=== PATIENT | male | born 1990 | race Caucasian/White ===

== ENCOUNTER 2020-10-04 21:08 | Emergency (ER) | payer SELFPAY ==
--- OUTSIDE RECORDS SUMMARY | 2020-10-04 21:11 | XMS REPORT | Continuity of Care Document ---
:1990 Author Organization [facility] t Address [address] [place] [address] Care Team Providers Name Role Phone Ismael LEGGETT Attending Clinician Problems This patient has no known problems. Allergies, Adverse Reactions, Alerts This patient has no known allergies or adverse reactions. Medications This patient has no known medications. Procedures This patient has no known procedures. Encounters Start End Encounter Admission Attending Care Care Encounter Source Date/Time Date/Time Type Type Clinicians Facility Department ID 2019-12-14 2019-12-14 Telemedici Dandre Guevara [facility] [id number] 08:36:00 08:51:00 ne Visit SPECIALTY [id number] CARE [id number] [place] AT [id number] ADELA WOLFF 2019-11-04 2019-11-13 Office Dandre Guevara [facility] [id number] 14:11:23 11:19:33 Visit SPECIALTY [id number] CARE [id number] [place] AT [id number] ADELA [address] [place] [address] Results This patient has no known results.
--- NOTE | 2020-10-05 00:40 | ER ---
Nurse's Notes [facility] Name: Silvano Baker III Age: 29 yrs Sex: Male : 1990 Arrival Date: 10/04/2020 Time: 21:08 Bed 8 Private MD: Diagnosis: Strain of Achilles tendon;Pain in left lower leg Presentation: 10/04 21:55 Chief complaint: Patient states: he states he is having what feels like a cramp in his bb left calf x 2 weeks it is painful and swells. Coronavirus screen: At this time, the client does not indicate any symptoms associated with coronavirus-19. Ebola Screen: No symptoms or risks identified at this time. Initial Sepsis Screen: Does the patient meet any 2 criteria? No. Patient's initial sepsis screen is negative. Does the patient have a suspected source of infection? No. Patient's initial sepsis screen is negative. Risk Assessment: Do you want to hurt yourself or someone else? Patient reports no desire to harm self or others. Onset of symptoms was September 2020. 21:55 Method Of Arrival: Ambulatory 21:55 Acuity: SANDRA 3 bb Triage Assessment: 21:58 General: Appears in no apparent distress. uncomfortable, Behavior is calm, cooperative. bb Pain: Complains of pain in left calf Pain currently is 8 out of 10 on a pain scale. Quality of pain is described as crampy, Pain began 2 weeks ago. Neuro: Level of Consciousness is awake, alert, obeys commands, Oriented to person, place, time, situation. Respiratory: Airway is patent Respiratory effort is even, unlabored, Respiratory pattern is regular. Derm: Skin is pink, warm \T\ dry. Musculoskeletal: Circulation, motion, and sensation intact. Reports pain in left calf. Historical: - Allergies: 21:58 No Known Allergies; bb - Home Meds: 21:58 None [Active]; bb - PMHx: 21:58 None; bb - PSHx: 21:58 jaw surgery; right tib fib; bb - Immunization history:: Adult Immunizations up to date. - Social history:: Smoking status: Patient reports the use of cigarette tobacco products, smokes one pack cigarettes per day. Patient uses alcohol. - Family history:: not pertinent. Screenin/21 01:35 Abuse screen: Denies threats or abuse. Denies injuries from another. Nutritional mg2 screening: No deficits noted. Tuberculosis screening: No symptoms or risk factors identified. Fall Risk None identified. Assessment: 00:38 Reassessment: pt called from [facility] multiple times no answer and unable to locate. bb 01:28 Reassessment: [facility]. Pt is A\T\O x 4, resp bb unlabored. 01:35 Reassessment: patient came back to ed. seen by the provider and utlrtrasound report mg2 explained by him to the patient. Vital Signs: 10/04 21:55 BP 104 / 87; Pulse 113; Resp 16 S; Temp 97.9(O); Pulse Ox 96% on R/A; Weight 104.33 kg; bb Height 6 ft. 1 in. (185.42 cm); Pain 8/10; 10/05 01:29 BP 116 / 75; Pulse 98; Resp 16; Temp 98.1(O); Pulse Ox 100% on R/A; Pain 6/10; bb 10/04 21:55 Body Mass Index 30.34 (104.33 kg, 185.42 cm) bb ED Course: 10/04 21:08 Patient arrived in ED. cl3 21:45 Patient's name was called from ER [facility]. No response. bb 21:56 [facility] Boat[facility]C [facility] kb 21:56 Kolby Garland MD is Attending Physician. kb 21:57 Triage completed. bb 21:58 Arm band placed on Patient placed in waiting room, Patient notified of wait time. bb ultrasound ordered. 22:39 US Extremity Venous Unilateral Ltd In Process Unspecified. EDMS 10/05 01:35 Jose Miguel Yates, RN is Primary Nurse. mg2 01:35 Kolby Garland MD is Attending Physician. marlyn 01:36 Patient has correct armband on for positive identification. mg2 01:36 No provider procedures requiring assistance completed. Patient did not have IV access mg2 during this emergency room visit. 01:45 Memo De Leon MD is Referral Physician. marlyn Administered Medications: 01:48 Drug: Motrin (ibuprofen) 800 mg Route: PO; mg2 01:58 Follow up: Response: No adverse reaction; Medication administered at discharge. jm8 Outcome: 00:39 Patient left the ED. bb 01:46 Discharge ordered by MD. cline 01:56 Discharged to home ambulatory. jm8 01:56 Condition: good 01:56 Discharge instructions given to patient. 01:59 Patient left the ED. jm8 Signatures: Dispatcher [employer] EDMS Jesusita Boateng, COMMODITY BROKER-C COMMODITY BROKER-Kolby Knowles MD MD cha Ballard, Brenda, RN Jose Miguel Dumas, Yeni Griffin RN 3 Jamal Rouse RN TRES jm8
--- NOTE | 2020-10-05 01:46 | EDPHYS ---
Physician Documentation [facility] Name: Silvano Baker III Age: 29 yrs Sex: Male : 1990 Arrival Date: 10/04/2020 Time: 21:08 Bed 8 Private MD: SHANE Physician Kolby Garland HPI: 10/05 01:39 This 29 yrs old Male presents to ER via Ambulatory with complaints of Leg marlyn Pain, Leg Swelling. 01:39 The patient presents with decreased range of motion, pain, swelling. The complaints marlyn affect the lateral aspect of left calf, left calf, medial aspect of left calf and left valente. Context: resulted from an unknown cause. Onset: The symptoms/episode began/occurred 7 day(s) ago. Modifying factors: The symptoms are alleviated by elevating leg, remaining still, the symptoms are aggravated by movement. Associated signs and symptoms: The patient has no apparent associated signs or symptoms. Treatment prior to arrival includes: no previous treatment. Severity of symptoms: At their worst the symptoms were moderate, in the emergency department the symptoms are unchanged. The patient has not experienced similar symptoms in the past. Historical: - Allergies: 10/04 21:58 No Known Allergies; bb - Home Meds: 21:58 None [Active]; bb - PMHx: 21:58 None; bb - PSHx: 21:58 jaw surgery; right tib fib; bb - Immunization history:: Adult Immunizations up to date. - Social history:: Smoking status: Patient reports the use of cigarette tobacco products, smokes one pack cigarettes per day. Patient uses alcohol. - Family history:: not pertinent. ROS: 10/05 01:39 Constitutional: Negative for fever, chills, and weight loss, Eyes: Negative for injury, marlyn pain, redness, and discharge, ENT: Negative for injury, pain, and discharge, Neck: Negative for injury, pain, and swelling, Cardiovascular: Negative for chest pain, palpitations, and edema, Respiratory: Negative for shortness of breath, cough, wheezing, and pleuritic chest pain, Abdomen/GI: Negative for abdominal pain, nausea, vomiting, diarrhea, and constipation, Back: Negative for injury and pain, : Negative for injury, bleeding, discharge, and swelling, Skin: Negative for injury, rash, and discoloration, Neuro: Negative for headache, weakness, numbness, tingling, and seizure, Psych: Negative for depression, anxiety, suicide ideation, homicidal ideation, and hallucinations, Allergy/Immunology: Negative for hives, rash, and allergies, Endocrine: Negative for neck swelling, polydipsia, polyuria, polyphagia, and marked weight changes. MS/extremity: Positive for decreased range of motion, pain, swelling, of the left calf. Exam: 01:39 Constitutional: This is a well developed, well nourished patient who is awake, alert, marlyn and in no acute distress. Head/Face: Normocephalic, atraumatic. Eyes: Pupils equal round and reactive to light, extra-ocular motions intact. Lids and lashes normal. Conjunctiva and sclera are non-icteric and not injected. Cornea within normal limits. Periorbital areas with no swelling, redness, or edema. ENT: Nares patent. No nasal discharge, no septal abnormalities noted. Tympanic membranes are normal and external auditory canals are clear. Oropharynx with no redness, swelling, or masses, exudates, or evidence of obstruction, uvula midline. Mucous membranes moist. Neck: Trachea midline, no thyromegaly or masses palpated, and no cervical lymphadenopathy. Supple, full range of motion without nuchal rigidity, or vertebral point tenderness. No Meningismus. Chest/axilla: Normal chest wall appearance and motion. Nontender with no deformity. No lesions are appreciated. Cardiovascular: Regular rate and rhythm with a normal S1 and S2. No gallops, murmurs, or rubs. Normal PMI, no JVD. No pulse deficits. Respiratory: Lungs have equal breath sounds bilaterally, clear to auscultation and percussion. No rales, rhonchi or wheezes noted. No increased work of breathing, no retractions or nasal flaring. Abdomen/GI: Soft, non-tender, with normal bowel sounds. No distension or tympany. No guarding or rebound. No evidence of tenderness throughout. Back: No spinal tenderness. No costovertebral tenderness. Full range of motion. Male : Normal genitalia with no discharge or lesions. Skin: Warm, dry with normal turgor. Normal color with no rashes, no lesions, and no evidence of cellulitis. Neuro: Awake and alert, GCS 15, oriented to person, place, time, and situation. Cranial nerves II-XII grossly intact. Motor strength 5/5 in all extremities. Sensory grossly intact. Cerebellar exam normal. Normal gait. Psych: Awake, alert, with orientation to person, place and time. Behavior, mood, and affect are within normal limits. 01:39 Musculoskeletal/extremity: ROM: limited passive range of motion, limited active range of motion due to pain, limited passive range of motion due to pain, in the lateral aspect of left calf, left calf, medial aspect of left calf and left valente. Vital Signs: 10/04 21:55 BP 104 / 87; Pulse 113; Resp 16 S; Temp 97.9(O); Pulse Ox 96% on R/A; Weight 104.33 kg; bb Height 6 ft. 1 in. (185.42 cm); Pain 8/10; 10/05 01:29 BP 116 / 75; Pulse 98; Resp 16; Temp 98.1(O); Pulse Ox 100% on R/A; Pain 6/10; bb 10/04 21:55 Body Mass Index 30.34 (104.33 kg, 185.42 cm) bb MDM: 01:35 Patient medically screened. [facility] 01:43 Differential diagnosis: contusion, abrasion, tendonitis. Data reviewed: vital signs, [facility] nurses notes. Data interpreted: quality assurance monitor body: rate is 98 beats/min, rhythm is regular, Pulse oximetry: on room air is 100 %. Test interpretation: by ED physician or midlevel provider:. Counseling: I had a detailed discussion with the patient and/or guardian regarding: the historical points, exam findings, and any diagnostic results supporting the discharge/admit diagnosis, radiology results. 10/04 21:57 Order name: US Extremity Venous Unilateral Ltd kb 10/05 01:48 Order name: Mat Wrap; Complete Time: 01:48 marlyn Administered Medications: 01:48 Drug: Motrin (ibuprofen) 800 mg Route: PO; mg2 01:58 Follow up: Response: No adverse reaction; Medication administered at discharge. jm8 Disposition: 10/05/20 01:46 Discharged to Home. Impression: Strain of Achilles tendon, Pain in left lower leg. - Condition is Stable. - Discharge Instructions: Musculoskeletal Pain, Cryotherapy, [id number], Cryotherapy. - Prescriptions for Diclofenac Sodium 75 mg Oral Tablet, Delayed Release (E.C.) - take 1 tablet by ORAL route 2 times per day; 20 tablet. - Medication Reconciliation Form, Thank You Letter, Antibiotic Education, Prescription Opioid Use form. - Follow up: Private Physician; When: 2 - 3 days; Reason: Recheck today's complaints, Continuance of care, Re-evaluation by your physician. Follow up: Memo De Leon MD; When: 2 - 3 days; Reason: Recheck today's complaints, Re-evaluation by your physician. - Problem is new. - Symptoms have improved. Signatures: Dispatcher [employer] EDMS Kolby Garland MD MD cha Ballard, Brenda RN RN Jose Miguel Becker, RN RN mg2 Jamal Rouse RN RN jm8 Corrections: (The following items were deleted from the chart) 00:39 00:38 10/05/2020 00:38 Patient left the facility before being seen by provider. Reason neymar stated they are leaving due to unknown. neymar 01:44 00:39 10/05/2020 00:38 Patient left the facility before being seen by provider. Reason marlyn stated they are leaving due to unknown. neymar 01:59 01:46 10/05/2020 01:46 Discharged to Home. Impression: Strain of Achilles tendon; Pain jm8 in left lower leg. Condition is Stable. Forms are Medication Reconciliation Form, Thank You Letter, Antibiotic Education, Prescription Opioid Use. Follow up: Private Physician; When: 2 - 3 days; Reason: Recheck today's complaints, Continuance of care, Re-evaluation by your physician. Follow up: Dr. Memo De Leon; When: 2 - 3 days; Reason: Recheck today's complaints, Re-evaluation by your physician. Problem is new. Symptoms have improved. marlyn
[2020-10-05] MEDS ORDERED: IBUPROFEN 400 MG TAB ONE (01:59)
[2020-10-05 05:24] VITALS: BP 116/75; TEMP 98.1; O2SAT 100
--- NOTE | 2020-10-05 08:19 | RAD REPORT ---
EXAM DESCRIPTION: US - Extremity Venous Uni Ltd - 10/04/2020 10:39 pm CLINICAL HISTORY: Pain;Swelling Leg swelling and edema. COMPARISON: No comparisons FINDINGS: Left lower extremity venous system was interrogated with Doppler technique. Normal flow, c ompressibility and augmentation was noted. There is no DVT present. IMPRESSION: No evidence of left lower extremity deep venous thrombosis.
== END 2020-10-05 01:59 | disposition home or self-care (01) ==
LOC: ER 21:08
DX: S86.012A Strain of left Achilles tendon, initial encounter (principal); F17.210 Nicotine dependence, cigarettes, uncomplicated
CPT/HCPCS: 93971; 99283